=== PATIENT | male | born 1960 | race Caucasian/White ===

== ENCOUNTER 2017-10-22 17:54 | Emergency (ER) | payer OTHER ==
[~2017-10-22] VITALS: Ht 177.8 cm; Wt 70.0 kg
[2017-10-22 18:11] VITALS: BP 100/65; PULSE 83; RESP 16; TEMP 98.4; O2SAT 99
[2017-10-22] MEDS ORDERED: LORazepam 2 MG TAB PO ONE (18:15)
--- NOTE | 2017-10-22 18:19 | PD ---
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 Patient currently is on a liver transplant list at [facility] in [place]. He has history of increased ammonia for which he takes lactulose. He states since May 13, he has used meth 7 times, and now wants to go to a rehab facility for help before he "loses it". He states the last time he used was 50 hours ago, but he states due to his liver disease his high lasts for hours. He denies any significant medical issues that are acute at this time. He states he is up-to-date on his medications for his HIV and hepatitis. He states his last viral load was undetectable. He states he contacted the employee assistance program, who want to help him with his issue. He has been enrolled in that program prior to arrival. He denies suicidal or homicidal ideations at this time. He denies any pain. He has no known drug allergies. [facility] Social History Alcohol Use: No Tobacco Use: Yes Substance Use: Yes Allergies-Medications (Allergen,Severity, Reaction): Coded Allergies: No Known Allergies (Unverified , 10/22/17) Reported Meds & Prescriptions Reported Meds & Active Scripts Active Reported Tivicay (Dolutegravir Sodium) 50 Mg Tab 50 Mg PO DAILY Prezcobix (Darunavir-Cobicistat) 800-150 Mg Tab 1 Tab PO DAILY Descovy (Emtricitabine-Tenofovir Alafenamide) 200-25 mg Tab 1 Tab PO DAILY Citalopram (Citalopram Hydrobromide) 20 Mg Tab 20 Mg PO DAILY Azithromycin 600 Mg Tab 600 Mg PO 2XWEEK Calcium 600 with Vitamin D (Calcium Carbonate-Cholecalciferol) 600-400 mg-Unit Tab 1 Tab PO DAILY Review of Systems Except as stated in HPI: all other systems reviewed are Neg General / Constitutional: No: Fever Eyes: No: Visual changes HENT: No: Headaches Cardiovascular: No: Chest Pain or Discomfort Respiratory: No: Shortness of Breath Gastrointestinal: No: Abdominal Pain Genitourinary: No: Dysuria Musculoskeletal: No: Pain Skin: No Rash Neurologic: No: Weakness Psychiatric: Positive: Substance Abuse, No: Depression, Suicidal Ideations, Homicidal Ideation Endocrine: No: Polydipsia Hematologic/Lymphatic: No: Easy Bruising Physical Exam Narrative GENERAL: Patient appears anxious and embarrassed but otherwise in no acute distress. SKIN: Warm and dry. Normal color. Normal turgor. No signs of IV drug use or cellulitis. HEAD: Atraumatic. Normocephalic. EYES: Pupils equal and round. No scleral icterus. No injection or drainage. ENT: No nasal bleeding or discharge. Mucous membranes pink and moist. Pharynx is clear. Airways patent NECK: Trachea midline. Supple nontender CARDIOVASCULAR: Regular rate and rhythm. RESPIRATORY: No accessory muscle use. Clear to auscultation. Breath sounds equal bilaterally. GASTROINTESTINAL: Abdomen soft, non-tender, nondistended. Hepatic and splenic margins enlarged consistent with his chronic hepatitis. MUSCULOSKELETAL: Extremities without clubbing, cyanosis, or edema. No obvious deformities. NEUROLOGICAL: Awake and alert. No obvious cranial nerve deficits. Motor grossly within normal limits. Five out of 5 muscle strength in the arms and legs. Normal speech. PSYCHIATRIC: Appropriate mood and affect; insight and judgment normal. Data Data Last Documented VS Vital Signs Date Time Temp Pulse Resp B/P (MAP) Pulse Ox O2 Delivery O2 Flow Rate FiO2 10/22/17 18:11 98.4 83 16 100/65 (77) 99 Room Air Orders Orders Complete Blood Count With Diff (10/22/17 18:09) Comprehensive Metabolic Panel (10/22/17 18:09) Thyroid Stimulating Hormone (10/22/17 18:09) Urinalysis - C+S If Indicated (10/22/17 18:09) Psych Screen (10/22/17 18:09) Drug Screen, Random Urine (10/22/17 18:09) Alcohol (Ethanol) (10/22/17 18:09) Ammonia (10/22/17 18:09) Lorazepam (Ativan) (10/22/17 18:15) Labs Laboratory Tests Test 10/22/17 18:30 [facility] Medical Decision Making Medical Screen Exam Complete: Yes Emergency Medical Condition: Yes Medical Record Reviewed: Yes Differential Diagnosis Substance abuse. Anxiety. Depression. Request for rehab. Narrative Course Patient is medically stable at time of exam. Labs ordered including CBC, CMP, urinalysis, urine drug screen, and serum alcohol level. Serum ammonia levels ordered as well. Psych screen is ordered. Patient is given 1 mg lorazepam p.o. Patient is medically cleared for psychiatric evaluation. Condition: Stable Bryn Shea Oct 22, 2017 18:19
[2017-10-22] MEDS ORDERED: DARU1TAB2 PO (18:21)
[2017-10-22] MEDS ORDERED: CALC1TAB87 PO (18:21)
[2017-10-22] MEDS ORDERED: AZIT600T PO (18:21)
[2017-10-22] MEDS ORDERED: DOLU1TAB PO (18:21)
[2017-10-22] MEDS ORDERED: EMTR1TAB4 PO (18:21)
[2017-10-22] MEDS ORDERED: CITA20TA4 PO (18:21)
[2017-10-22 18:46] LABS: AUTOMATED NEUTROPHIL # 2.5 TH/MM3 (1.8-7.7); BASOPHIL % 0.4 % (0.0-2.0); EOSINOPHIL # 0.1 TH/MM3 (0-0.4); EOSINOPHIL % 1.6 % (0.0-4.0); HEMATOCRIT 28.2 % (39.0-51.0); HEMOGLOBIN 9.3 GM/DL (13.0-17.0); LYMPH % 10.5 % (9.0-44.0); LYMPHOCYTE # 0.3 TH/MM3 (1.0-4.8); MEAN CELL VOLUME 72.5 FL (80.0-100.0); MEAN CORPUSCULAR HEMOGLOBIN 23.8 PG (27.0-34.0); MEAN CORPUSCULAR HGB CONC 32.8 % (32.0-36.0); MEAN PLATELET VOLUME 7.9 FL (7.0-11.0); MONO % 10.3 % (0.0-8.0); MONOCYTE # 0.3 TH/MM3 (0-0.9); NEUT % 77.2 % (16.0-70.0); PLATELET COUNT 90 TH/MM3 (150-450); RED BLOOD COUNT 3.89 MIL/MM3 (4.50-5.90); RED CELL DISTRIBUTION WIDTH 17.2 % (11.6-17.2); WHITE BLOOD COUNT 3.2 TH/MM3 (4.0-11.0)
[2017-10-22 19:28] LABS: OVALOCYTES 1+ (NORMAL); TOXIC GRANULATION 2+ (NORMAL)
[2017-10-22 19:41] LABS: ALBUMIN 3.7 GM/DL (3.4-5.0); ALT (GPT) 61 U/L (12-78); AST (GOT) 87 U/L (15-37); BICARBONATE 23.4 MEQ/L (21.0-32.0); BLOOD UREA NITROGEN 15 MG/DL (7-18); CALCIUM 8.5 MG/DL (8.5-10.1); CHLORIDE 106 MEQ/L (98-107); CREATININE 0.96 MG/DL (0.60-1.30); GLOMERULAR FILTRATION RATE 81 ML/MIN (>89); GLUCOSE,RANDOM 84 MG/DL (74-106); SODIUM (NA) 139 MEQ/L (136-145)
[2017-10-22 19:51] LABS: ALKALINE PHOSPHATASE 45 U/L (45-117); TOTAL BILIRUBIN ADULT 0.9 MG/DL (0.2-1.0); TOTAL PROTEIN 7.6 GM/DL (6.4-8.2)
[2017-10-22 23:20] LABS: BILIRUBIN, URINE NEG (NEG); BLOOD, URINE NEG (NEG); GLUCOSE,URINE NEG (NEG); KETONE, URINE TRACE mg/dL (NEG); MUCUS URINE FEW /lpf (OCC); NITRITE,URINE NEG (NEG); URINE COLOR YELLOW (YELLW/STRAW); URINE LEUKOCYTE ESTERASE NEG (NEG)
[2017-10-23 05:51] VITALS: BP 106/56; PULSE 86; RESP 16; O2SAT 98
--- NOTE | 2017-10-23 09:04 | PD ---
Physical Exam Date Seen by Provider: Oct 23, 2017 Time Seen by Provider: 09:00 Narrative 57-year-old male previously medically cleared for psychiatric evaluation, with history of substance abuse, was discussed with psychiatric services, and they felt it was inappropriate for them to assess the patient psychiatrically as he is an employee here at [employer]. The patient is not homicidal or suicidal, so Isaac act is inappropriate. Patient was given information regarding multiple drug rehabilitation services, that he can go to on his own accord. Patient can also follow up with his primary care physician as well. Patient remained stable for discharge at this time. Data Data Last Documented VS Vital Signs Date Time Temp Pulse Resp B/P (MAP) Pulse Ox O2 Delivery O2 Flow Rate FiO2 10/23/17 05:51 86 16 106/56 (73) 98 Room Air 10/22/17 18:11 98.4 Orders Orders Complete Blood Count With Diff (10/22/17 18:09) Comprehensive Metabolic Panel (10/22/17 18:09) Thyroid Stimulating Hormone (10/22/17 18:09) Urinalysis - C+S If Indicated (10/22/17 18:09) Drug Screen, Random Urine (10/22/17 18:09) Alcohol (Ethanol) (10/22/17 18:09) Ammonia (10/22/17 18:09) Lorazepam (Ativan) (10/22/17 18:15) Diet Regular Basic (10/23/17 Breakfast) Labs Laboratory Tests Test 10/22/17 18:30 10/22/17 22:52 White Blood Count 3.2 TH/MM3 Red Blood Count 3.89 MIL/MM3 Hemoglobin 9.3 GM/DL Hematocrit 28.2 % Mean Corpuscular Volume 72.5 FL Mean Corpuscular Hemoglobin 23.8 PG Mean Corpuscular Hemoglobin Concent 32.8 % Red Cell Distribution Width 17.2 % Platelet Count 90 TH/MM3 Mean Platelet Volume 7.9 FL Neutrophils (%) (Auto) 77.2 % Lymphocytes (%) (Auto) 10.5 % Monocytes (%) (Auto) 10.3 % Eosinophils (%) (Auto) 1.6 % Basophils (%) (Auto) 0.4 % Neutrophils # (Auto) 2.5 TH/MM3 Lymphocytes # (Auto) 0.3 TH/MM3 Monocytes # (Auto) 0.3 TH/MM3 Eosinophils # (Auto) 0.1 TH/MM3 Basophils # (Auto) 0.0 TH/MM3 CBC Comment AUTO DIFF Differential Comment AUTO DIFF CONFIRMED Toxic Granulation 2+ Platelet Estimate LOW Platelet Morphology Comment NORMAL Ovalocytes 1+ Blood Urea Nitrogen 15 MG/DL Creatinine 0.96 MG/DL Random Glucose 84 MG/DL Total Protein 7.6 GM/DL Albumin 3.7 GM/DL Calcium Level 8.5 MG/DL Alkaline Phosphatase 45 U/L Aspartate Amino Transf (AST/SGOT) 87 U/L Alanine Aminotransferase (ALT/SGPT) 61 U/L Total Bilirubin 0.9 MG/DL Sodium Level 139 MEQ/L Potassium Level 3.7 MEQ/L Chloride Level 106 MEQ/L Carbon Dioxide Level 23.4 MEQ/L Anion Gap 10 MEQ/L Estimat Glomerular Filtration Rate 81 ML/MIN Ammonia 39 MCMOL/L Thyroid Stimulating Hormone 3rd Gen 2.270 uIU/ML Ethyl Alcohol Level LESS THAN 3 MG/DL Urine Color YELLOW Urine Turbidity CLEAR Urine pH 6.0 Urine Specific [place] 1.014 Urine Protein TRACE mg/dL Urine Glucose (UA) NEG mg/dL Urine Ketones TRACE mg/dL Urine Occult Blood NEG Urine Nitrite NEG Urine Bilirubin NEG Urine Urobilinogen 4.0 MG/DL Urine Leukocyte Esterase NEG Urine WBC 2 /hpf Urine Mucus FEW /lpf Microscopic Urinalysis Comment CULT NOT INDICATED Urine Opiates Screen NEG Urine Barbiturates Screen NEG Urine Amphetamines Screen POS Urine Benzodiazepines Screen NEG Urine Cocaine Screen NEG Urine Cannabinoids Screen NEG MDM Medical Record Reviewed: Yes Supervised Visit with MISHEL: Yes Narrative Course 57-year-old male previously medically cleared for psychiatric evaluation, with history of substance abuse, was discussed with psychiatric services, and they felt it was inappropriate for them to assess the patient psychiatrically as he is an employee here at [employer]. The patient is not homicidal or suicidal, so Isaac act is inappropriate. Patient was given information regarding multiple drug rehabilitation services, that he can go to on his own accord. Patient can also follow up with his primary care physician as well. Patient remained stable for discharge at this time. Diagnosis Primary Impression: Substance abuse Additional Impression: Liver disease, unspecified Patient Instructions: General Instructions Additional Instruction: Follow-up with rehabilitation services as discussed. Follow-up with primary care physician. Disposition: DISCHARGE HOME Condition: Stable Bryn Shea Oct 23, 2017 09:04
[2017-10-23 10:02] VITALS: BP 130/68
== END 2017-10-23 10:04 | disposition home or self-care (01) ==
LOC: NEPD 17:54
DX: B20 Human immunodeficiency virus [HIV] disease (principal); F19.10 Other psychoactive substance abuse, uncomplicated; K76.9 Liver disease, unspecified; Z72.0 Tobacco use; Z79.899 Other long term (current) drug therapy
CPT/HCPCS: 80053; 80307; 81001; 82140; 84443; 85025; 99283

== ENCOUNTER 2017-11-30 16:01 | Emergency (ER) | payer OTHER ==
[~2017-11-30] VITALS: Ht 172.7 cm; Wt 72.5 kg
[~2017-11-30 16:01] MED LIST: AZIT600T PO; CALC1TAB87 PO; CITA20TA4 PO; DARU1TAB2 PO; DOLU1TAB PO; EMTR1TAB4 PO
[2017-11-30 16:10] VITALS: BP 146/80; PULSE 73; RESP 18; TEMP 99.2; O2SAT 97
[2017-11-30] MEDS ORDERED: CALC1TAB37 PO (16:35)
[2017-11-30] MEDS ORDERED: LACT10SO PO (16:36)
[2017-11-30 17:01] LABS: AUTOMATED NEUTROPHIL # 2.5 TH/MM3 (1.8-7.7); BASOPHIL % 0.4 % (0.0-2.0); HEMATOCRIT 28.3 % (39.0-51.0); HEMOGLOBIN 9.3 GM/DL (13.0-17.0); LYMPH % 11.4 % (9.0-44.0); LYMPHOCYTE # 0.4 TH/MM3 (1.0-4.8); MEAN CELL VOLUME 72.1 FL (80.0-100.0); MEAN CORPUSCULAR HEMOGLOBIN 23.6 PG (27.0-34.0); MEAN CORPUSCULAR HGB CONC 32.8 % (32.0-36.0); MEAN PLATELET VOLUME 7.9 FL (7.0-11.0); MONO % 13.1 % (0.0-8.0); MONOCYTE # 0.4 TH/MM3 (0-0.9); NEUT % 74.1 % (16.0-70.0); PLATELET COUNT 90 TH/MM3 (150-450); RED BLOOD COUNT 3.93 MIL/MM3 (4.50-5.90); RED CELL DISTRIBUTION WIDTH 18.1 % (11.6-17.2); WHITE BLOOD COUNT 3.3 TH/MM3 (4.0-11.0)
[2017-11-30 17:10] LABS: CHLORIDE 107 MEQ/L (98-107); SODIUM (NA) 140 MEQ/L (136-145)
[2017-11-30 17:13] LABS: CALCIUM 8.6 MG/DL (8.5-10.1)
[2017-11-30 17:14] LABS: BICARBONATE 23.9 MEQ/L (21.0-32.0); BLOOD UREA NITROGEN 14 MG/DL (7-18); GLUCOSE,RANDOM 96 MG/DL (74-106)
[2017-11-30 17:17] LABS: ALT (GPT) 49 U/L (12-78); AST (GOT) 70 U/L (15-37); CREATININE 0.81 MG/DL (0.60-1.30); GLOMERULAR FILTRATION RATE 99 ML/MIN (>89)
[2017-11-30 17:19] LABS: TOTAL BILIRUBIN ADULT 1.1 MG/DL (0.2-1.0); TOTAL PROTEIN 7.7 GM/DL (6.4-8.2)
[2017-11-30 17:20] LABS: ALKALINE PHOSPHATASE 49 U/L (45-117)
--- NOTE | 2017-11-30 17:47 | PD ---
HPI . 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 He reports known esophageal varices. He states that he had blood in his stools 2 days ago and then again one day ago. His stools today were normal. He has not vomited any blood. The patient's main concern is that he is about to be arrested as a pedophile. He states that his 2 previous ex-lovers have conspired together to make it seem like he is a pedophile. He states that he is innocent of that. He states that he would rather than go to detention as a pedophile. He further admits that he does suffer from delusions and hallucinations and had reality from his delusions and hallucinations. However, he states that he is sure that he is to ex-lovers are conspiring to have him arrested with the hope being that he will be killed in detention. The patient states that the 2 lovers both have insurance policies on him. PFSH Past Medical History Autoimmune Disease: Yes (HIV) Hepatitis: Yes (B, 34 years) Hypertension: Yes (PORT HYPERTENSION, END STAGE CIRRHOSIS) Immune Disorder: Yes (HIV +) Immunizations Current: Yes Past Surgical History Genitourinary Surgery: Yes (testical torsion) Other Surgery: Yes (7 bandings of esophageal varieces, nasoseptoplasty, adenoidectomy) Social History Alcohol Use: Yes (SOCIALLY) Tobacco Use: No Substance Use: Yes (THC, CRYSTAL METH) Allergies-Medications (Allergen,Severity, Reaction): Coded Allergies: No Known Allergies (Unverified , 11/30/17) Reported Meds & Prescriptions Reported Meds & Active Scripts Active Reported Lactulose Liq (Lactulose) 10 Gm/15 Ml Soln 30 Ml PO BID Calcium 600+D (Calcium Carbonate-Cholecalciferol) 600-800 Mg-Unit Tab 1 Tab PO DAILY Tivicay (Dolutegravir Sodium) 50 Mg Tab 50 Mg PO DAILY Prezcobix (Darunavir-Cobicistat) 800-150 Mg Tab 1 Tab PO DAILY Descovy (Emtricitabine-Tenofovir Alafenamide) 200-25 mg Tab 1 Tab PO DAILY Citalopram (Citalopram Hydrobromide) 20 Mg Tab 20 Mg PO DAILY Azithromycin 600 Mg Tab 600 Mg PO 2XWEEK Review of Systems Except as stated in HPI: all other systems reviewed are Neg General / Constitutional: No: Fever, Chills Cardiovascular: No: Chest Pain or Discomfort Respiratory: No: Shortness of Breath Gastrointestinal: Positive: Hematochezia, No: Nausea, Vomiting, Abdominal Pain , Hematemesis Psychiatric: Positive: Anxiety, Depression, Suicidal Ideations, Disorder of Thought, Mood Disorder, Substance Abuse Physical Exam Narrative GENERAL: Awake and alert. Psychomotor agitation. SKIN: warm/dry. HEAD: Normocephalic. Atraumatic. EYES: Pupils equal and round. Extraocular movements are intact. ENT: Mucous membranes pink and moist. NECK: Supple. Full range of motion without pain.. CARDIOVASCULAR: Regular rate and rhythm. Heart sounds normal. RESPIRATORY: No accessory muscle use. Clear to auscultation. Breath sounds equal bilaterally. GASTROINTESTINAL: Abdomen soft. Nontender. Bowel sounds present. Nondistended. RECTAL: Brown stool in the rectal vault. MUSCULOSKELETAL: No obvious deformities. Normal muscle tone. NEUROLOGICAL: Awake and alert. No obvious cranial nerve deficits. Motor grossly within normal limits. Normal speech. PSYCHIATRIC: Awake and alert. Psychomotor agitation. Admitted substance abuse. Suicidal ideation. Data Data Last Documented VS Vital Signs Date Time Temp Pulse Resp B/P (MAP) Pulse Ox O2 Delivery O2 Flow Rate FiO2 11/30/17 16:10 99.2 73 18 146/80 (102) 97 Orders Orders Complete Blood Count With Diff (11/30/17 16:31) Comprehensive Metabolic Panel (11/30/17 16:31) Thyroid Stimulating Hormone (11/30/17 16:31) Psych Screen (11/30/17 16:31) Drug Screen, Random Urine (11/30/17 16:31) Labs Laboratory Tests Test 11/30/17 16:45 11/30/17 16:50 Urine Opiates Screen NEG Urine Barbiturates Screen NEG Urine Amphetamines Screen POS Urine Benzodiazepines Screen NEG Urine Cocaine Screen NEG Urine Cannabinoids Screen NEG White Blood Count 3.3 TH/MM3 Red Blood Count 3.93 MIL/MM3 Hemoglobin 9.3 GM/DL Hematocrit 28.3 % Mean Corpuscular Volume 72.1 FL Mean Corpuscular Hemoglobin 23.6 PG Mean Corpuscular Hemoglobin Concent 32.8 % Red Cell Distribution Width 18.1 % Platelet Count 90 TH/MM3 Mean Platelet Volume 7.9 FL Neutrophils (%) (Auto) 74.1 % Lymphocytes (%) (Auto) 11.4 % Monocytes (%) (Auto) 13.1 % Eosinophils (%) (Auto) 1.0 % Basophils (%) (Auto) 0.4 % Neutrophils # (Auto) 2.5 TH/MM3 Lymphocytes # (Auto) 0.4 TH/MM3 Monocytes # (Auto) 0.4 TH/MM3 Eosinophils # (Auto) 0.0 TH/MM3 Basophils # (Auto) 0.0 TH/MM3 CBC Comment AUTO DIFF Differential Comment AUTO DIFF CONFIRMED Platelet Estimate NORMAL Platelet Morphology Comment NORMAL Red Cell Morphology Comment NORMAL Blood Urea Nitrogen 14 MG/DL Creatinine 0.81 MG/DL Random Glucose 96 MG/DL Total Protein 7.7 GM/DL Albumin 4.0 GM/DL Calcium Level 8.6 MG/DL Alkaline Phosphatase 49 U/L Aspartate Amino Transf (AST/SGOT) 70 U/L Alanine Aminotransferase (ALT/SGPT) 49 U/L Total Bilirubin 1.1 MG/DL Sodium Level 140 MEQ/L Potassium Level 3.5 MEQ/L Chloride Level 107 MEQ/L Carbon Dioxide Level 23.9 MEQ/L Anion Gap 9 MEQ/L Estimat Glomerular Filtration Rate 99 ML/MIN Thyroid Stimulating Hormone 3rd Gen 2.630 uIU/ML MDM Medical Decision Making Medical Screen Exam Complete: Yes Emergency Medical Condition: Yes Medical Record Reviewed: Yes (The patient was seen at [facility] [place] [facility] in September because of substance abuse. Psychiatry was consulted. 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 Narrative Course This patient presents complaining with suicidal ideation. He states that he is suicidal because he will imminently be arrested as a pedophile. He fears that he will in detention. He states that his 2 ex-lovers have insurance policies on him and stand to gain from his . He believes that they are setting him up as a pedophile. I have called our psychiatry service for advice. They have recommended that I medically clear the patient and then refer him to [facility]. CBC & BMP Diagram 11/30/17 16:50 Total Protein 7.7, Albumin 4.0, Calcium Level 8.6, Alkaline Phosphatase 49, Aspartate Amino Transf (AST/SGOT) 70 H, Alanine Aminotransferase (ALT/SGPT) 49, Total Bilirubin 1.1 H These labs are stable for this patient. His rectal exam is Hemoccult negative. Vital Signs Date Time Temp Pulse Resp B/P (MAP) Pulse Ox O2 Delivery O2 Flow Rate FiO2 11/30/17 16:10 99.2 73 18 146/80 (102) 97 This patient is medically clear for psychiatric evaluation. I have called [facility]. They have asked that I fax the patient's information to them. Diagnosis Primary Impression: Suicidal ideation Additional Impressions: HIV (human immunodeficiency virus infection) Cirrhosis Qualified Codes: K74.60 - Unspecified cirrhosis of liver Polysubstance abuse Condition: Stable Gudelia Carrizales MD Nov 30, 2017 17:47
[2017-11-30 18:23] VITALS: BP 132/76; PULSE 90; RESP 20; O2SAT 98
[2017-11-30 19:48] VITALS: BP 109/58; PULSE 93; RESP 17; O2SAT 97
--- NOTE | 2017-11-30 20:02 | PD ---
Physical Exam Narrative Received sign out from previous team that we are currently waiting to hear back from [facility] psych unit to see if they will take him. Pt has been medically clear by previous team, please see her note for further details. 57yo M with PMH of HIV on medications VL undetectable, CD4 count 100, HPV here with suicidal ideations. Pt told me that he is 60% certain and has a plan. Said he has auditory hallucinations for a while. Pt states that his two ex is plotting against him and wants him to go to snf for pedophile charges. Unknown if this is actually true. Pt does have pressure speech and seems manic. Denies any homicidal ideations. 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 That is why even though we have psych, pt will be transfer to [facility] as per patient request. Labs reviewed, WBC 3.3. H/H 9.3/28.3 which is baseline as compare to 10/22/17. Thrombocytopenic at 90,000 which is also baseline. Mildly elevated bilirubin at 1.1. TSH normal. Pt is on daily lactulose. Ammonia level has been requested by [facility] which has been drawn. Ammonia level mildly elevated at 57. Pt given lactulose. Said he did not take his lactulose for 2 days. Do not think that an ammonia level of 57 is the reason for his paranoia. Will place routine lactulose doses and pt is still medically clear to be evaluated by psych. Discussed with Samson, the psychiatrist nurse from [facility] who spoke with the psychiatrist Dr. Landry and he told me that they are not accepting the patient because of his comorbidities. I feel that pt is suicidal and currently a threat to himself so Marlin Acted him. Discussed with patient and he is ok with going to [facility] now. Asked registration to make his name confidential. Discussed with [facility] pod nurse Eleonora and she is aware pt is being transferred to [facility] for psych evaluation. Ordered lactulose daily. We do not have many of the HIV combination medications that pt take and pt has his medications with him so feel that if pt is still waiting for psych tomorrow, he should take his own medications. Data Data Last Documented VS Vital Signs Date Time Temp Pulse Resp B/P (MAP) Pulse Ox O2 Delivery O2 Flow Rate FiO2 11/30/17 23:57 98.2 89 18 133/76 (95) 98 Room Air Orders Orders Complete Blood Count With Diff (11/30/17 16:31) Comprehensive Metabolic Panel (11/30/17 16:31) Thyroid Stimulating Hormone (11/30/17 16:31) Psych Screen (11/30/17 16:31) Drug Screen, Random Urine (11/30/17 16:31) Ammonia (11/30/17 19:54) Lactulose Liq (Lactulose Liq) (11/30/17 21:00) Lactulose Liq (Lactulose Liq) (12/01/17 09:00) Lorazepam Inj (Ativan Inj) (12/01/17 00:15) Labs Laboratory Tests Test 11/30/17 16:45 11/30/17 16:50 11/30/17 20:05 Urine Opiates Screen NEG Urine Barbiturates Screen NEG Urine Amphetamines Screen POS Urine Benzodiazepines Screen NEG Urine Cocaine Screen NEG Urine Cannabinoids Screen NEG White Blood Count 3.3 TH/MM3 Red Blood Count 3.93 MIL/MM3 Hemoglobin 9.3 GM/DL Hematocrit 28.3 % Mean Corpuscular Volume 72.1 FL Mean Corpuscular Hemoglobin 23.6 PG Mean Corpuscular Hemoglobin Concent 32.8 % Red Cell Distribution Width 18.1 % Platelet Count 90 TH/MM3 Mean Platelet Volume 7.9 FL Neutrophils (%) (Auto) 74.1 % Lymphocytes (%) (Auto) 11.4 % Monocytes (%) (Auto) 13.1 % Eosinophils (%) (Auto) 1.0 % Basophils (%) (Auto) 0.4 % Neutrophils # (Auto) 2.5 TH/MM3 Lymphocytes # (Auto) 0.4 TH/MM3 Monocytes # (Auto) 0.4 TH/MM3 Eosinophils # (Auto) 0.0 TH/MM3 Basophils # (Auto) 0.0 TH/MM3 CBC Comment AUTO DIFF Differential Comment AUTO DIFF CONFIRMED Platelet Estimate NORMAL Platelet Morphology Comment NORMAL Red Cell Morphology Comment NORMAL Blood Urea Nitrogen 14 MG/DL Creatinine 0.81 MG/DL Random Glucose 96 MG/DL Total Protein 7.7 GM/DL Albumin 4.0 GM/DL Calcium Level 8.6 MG/DL Alkaline Phosphatase 49 U/L Aspartate Amino Transf (AST/SGOT) 70 U/L Alanine Aminotransferase (ALT/SGPT) 49 U/L Total Bilirubin 1.1 MG/DL Sodium Level 140 MEQ/L Potassium Level 3.5 MEQ/L Chloride Level 107 MEQ/L Carbon Dioxide Level 23.9 MEQ/L Anion Gap 9 MEQ/L Estimat Glomerular Filtration Rate 99 ML/MIN Thyroid Stimulating Hormone 3rd Gen 2.630 uIU/ML Ammonia 57 MCMOL/L MDM Supervised Visit with MISHEL: No Diagnosis Primary Impression: Suicidal ideation Additional Impressions: HIV (human immunodeficiency virus infection) Cirrhosis Qualified Codes: K74.60 - Unspecified cirrhosis of liver Polysubstance abuse Condition: Yudith Reyna DO Nov 30, 2017 20:02
[2017-11-30] MEDS ORDERED: LACTULOSE SYRUP 20 GM/30 ML CUP PO ONE (21:00)
[2017-11-30 21:55] VITALS: BP 113/70; PULSE 87; RESP 18; O2SAT 98
[2017-11-30 23:01] VITALS: BP 129/80
[2017-11-30 23:57] VITALS: BP 133/76; PULSE 89; RESP 18; TEMP 98.2; O2SAT 98
[2017-12-01] MEDS ORDERED: LORazepam 2 MG/ML VIAL IM ONE (00:15)
[2017-12-01 06:31] VITALS: BP 119/61; PULSE 77; RESP 16; TEMP 98.2; O2SAT 97
[2017-12-01] MEDS ORDERED: LACTULOSE SYRUP 20 GM/30 ML CUP PO SCH (09:00)
--- NOTE | 2017-12-01 10:06 | PD ---
History of Present Illness Chief Complaint: Suicide Ideation/Attempt Time Seen by Provider: 09:45 Travel History International Travel<30 Days: No Contact w/Intl Traveler<30days: No Known affected area: No Legal Status Legal Status: Involuntary Isaac Act Signed By: Brittanie Isaac Act Comment: CERTIFICATE OF PROFESSIONAL INITIATING INVOLUNTARY EXAMINATION11/30/17@2226 History of Present Illness: History of Present Illness HPI This is a 57 year old, single male with multiple medical problems including HIV, on medications VL undetectable, CD4 count 100, HPV,substance use disorder mostly methamphetamine, previously treated with Citalopram, who presents to ED for evaluation of rectal bleeding as well as suicidal ideation. ED note is reviewed and included in this report. "The patient's main concern is that he is about to be arrested as a pedophile. He states that his 2 previous ex-lovers have conspired together to make it seem like he is a pedophile. He states that he is innocent of that. He states that he would rather than go to [facility] as a pedophile. He further admits that he does suffer from delusions and hallucinations and had reality from his delusions and hallucinations. However, he states that he is sure that he is to ex-lovers are conspiring to have him arrested with the hope being that he will be killed in [facility]. The patient states that the 2 lovers both have insurance policies on him." EMR reviewed. Current toxicology is positive for amphetamines. Patient presented to ED on September 2017 requesting substance abuse treatment. Patient is seen. He is asleep but awakens easily. He is calm and cooperative. His speech is clear of low tone but of normal rate. Patient does not appear to be responding to internal stimuli. No evidence of luis or hypomania. He states he needs" ongoing care. I need rehab for substance abuse. " He reports a six-year history of crystal meth use. He last used on Tuesday and Tuesday of this week. Previous to that he had been clean since May 2017. However he has had episodes of relapse in which she has used for 1 or 2 days. The patient presently is not endorsing any suicidal ideation, intent or plan. States I'm not a suicidal person but I did state that he may be facing criminal charges and that he had mentioned "if I was going to [facility] I would shoot myself". He is requesting treatment at this time and is willing to be transferred to a facility that could treat both his substance use as well as his mental health needs. The remainder of the psychiatric review of system is negative. PFSH Past Medical History Autoimmune Disease: Yes (HIV) Hepatitis: Yes (B, 34 years) Hypertension: Yes (PORT HYPERTENSION, END STAGE CIRRHOSIS) Immune Disorder: Yes (HIV +) Immunizations Current: Yes Past Surgical History Genitourinary Surgery: Yes (testical torsion) Other Surgery: Yes (7 bandings of esophageal varieces, nasoseptoplasty, adenoidectomy) Psychiatric History Psychiatric History Hx Psychiatric Treatment: No previous psychiatric hospitalization. Has been treated with Celexa in the past. He currently is not taking this medication. And this was prescribed to him at the [facility]. No history of suicide attempt. History of Inpatient Treatment: No Guns or firearms in home: No Social History Single, male. Works as a respiratory therapist. Born in [facility]. Hx Alcohol Use: Yes (SOCIALLY) Hx Tobacco Use: No Hx Substance Use: Yes (THC, CRYSTAL METH) Substance Use Type: Amphetamines-Stimulants Hx of Substance Use Treatment: No Family Psychiatric History Negative Allergies-Medications (Allergen,Severity, Reaction): Coded Allergies: No Known Allergies (Unverified , 11/30/17) Reported Meds & Prescriptions Reported Meds & Active Scripts Active Reported Lactulose Liq (Lactulose) 10 Gm/15 Ml Soln 30 Ml PO BID Calcium 600+D (Calcium Carbonate-Cholecalciferol) 600-800 Mg-Unit Tab 1 Tab PO DAILY Tivicay (Dolutegravir Sodium) 50 Mg Tab 50 Mg PO DAILY Prezcobix (Darunavir-Cobicistat) 800-150 Mg Tab 1 Tab PO DAILY Descovy (Emtricitabine-Tenofovir Alafenamide) 200-25 mg Tab 1 Tab PO DAILY Citalopram (Citalopram Hydrobromide) 20 Mg Tab 20 Mg PO DAILY Azithromycin 600 Mg Tab 600 Mg PO 2XWEEK Review of Systems Constitutional: COMPLAINS OF: Fatigue Psychiatric: COMPLAINS OF: Depression, Suicidal Ideation Mental Status Examination Appearance: Appropriate (In [facility]) Consciousness: Alert Orientation: x4 Motor Activity: Normal gait Speech: Unremarkable Language: Adequate Fund of Knowledge: Adequate Attention and Concentration: Adequate Memory: Unremarkable Mood: Appropriate Affect: Appropriate Thought Process & Associations: Intact, Logical, Goal directed Thought Content: Appropriate Hallucination Type: None Delusion Type: None Suicidal Ideation: Yes (If I am sent to [facility] I said I would shoot myself". ) Suicidal Plan: No Suicidal Intention: No Homicidal Ideation: No Homicidal Plan: No Homicidal Intention: No Insight: Adequate Judgment: Adequate MDM Medical Decision Making Medical Record Reviewed: Yes Assessment/Plan This is a 57 year old, single male with multiple medical problems including HIV, on medications VL undetectable, CD4 count 100, HPV,substance use disorder mostly methamphetamine, previously treated with Citalopram, who presents to ED for evaluation of rectal bleeding as well as suicidal ideation. ED note is reviewed and included in this report. "The patient's main concern is that he is about to be arrested as a pedophile. He states that his 2 previous ex-lovers have conspired together to make it seem like he is a pedophile. He states that he is innocent of that. He states that he would rather than go to [facility] as a pedophile. He further admits that he does suffer from delusions and hallucinations and had reality from his delusions and hallucinations. However, he states that he is sure that he is to ex-lovers are conspiring to have him arrested with the hope being that he will be killed in [facility]. The patient states that the 2 lovers both have insurance policies on him." Patient at this time is [place] for safety and he is requesting to be admitted to a facility that provides both psychiatric as well as treatment for his substance abuse problems. Case discussed with Mr. Nino Pérez to assist with disposition. Referral packet to [facility] and was accepted for treatment. He will be transported there. Orders Orders Complete Blood Count With Diff (11/30/17 16:31) Comprehensive Metabolic Panel (11/30/17 16:31) Thyroid Stimulating Hormone (11/30/17 16:31) Psych Screen (11/30/17 16:31) Drug Screen, Random Urine (11/30/17 16:31) Ammonia (11/30/17 19:54) Lactulose Liq (Lactulose Liq) (11/30/17 21:00) Lactulose Liq (Lactulose Liq) (12/01/17 09:00) Lorazepam Inj (Ativan Inj) (12/01/17 00:15) Diet Regular Basic (12/01/17 Breakfast) Diet Regular Basic (12/01/17 Lunch) Results Vital Signs Date Time Temp Pulse Resp B/P (MAP) Pulse Ox O2 Delivery O2 Flow Rate FiO2 12/01/17 06:31 98.2 77 16 119/61 (80) 97 11/30/17 23:57 98.2 89 18 133/76 (95) 98 Room Air 11/30/17 23:01 84 16 129/80 (96) 98 11/30/17 21:55 87 18 113/70 (84) 98 Room Air 11/30/17 19:48 93 17 109/58 (75) 97 11/30/17 18:23 90 20 132/76 (94) 98 Room Air 11/30/17 16:10 99.2 73 18 146/80 (102) 97 Laboratory Tests Test 11/30/17 16:45 11/30/17 16:50 11/30/17 20:05 Urine Opiates Screen NEG Urine Barbiturates Screen NEG Urine Amphetamines Screen POS Urine Benzodiazepines Screen NEG Urine Cocaine Screen NEG Urine Cannabinoids Screen NEG White Blood Count 3.3 Red Blood Count 3.93 Hemoglobin 9.3 Hematocrit 28.3 Mean Corpuscular Volume 72.1 Mean Corpuscular Hemoglobin 23.6 Mean Corpuscular Hemoglobin Concent 32.8 Red Cell Distribution Width 18.1 Platelet Count 90 Mean Platelet Volume 7.9 Neutrophils (%) (Auto) 74.1 Lymphocytes (%) (Auto) 11.4 Monocytes (%) (Auto) 13.1 Eosinophils (%) (Auto) 1.0 Basophils (%) (Auto) 0.4 Neutrophils # (Auto) 2.5 Lymphocytes # (Auto) 0.4 Monocytes # (Auto) 0.4 Eosinophils # (Auto) 0.0 Basophils # (Auto) 0.0 CBC Comment AUTO DIFF Differential Comment AUTO DIFF CONFIRMED Platelet Estimate NORMAL Platelet Morphology Comment NORMAL Red Cell Morphology Comment NORMAL Blood Urea Nitrogen 14 Creatinine 0.81 Random Glucose 96 Total Protein 7.7 Albumin 4.0 Calcium Level 8.6 Alkaline Phosphatase 49 Aspartate Amino Transf (AST/SGOT) 70 Alanine Aminotransferase (ALT/SGPT) 49 Total Bilirubin 1.1 Sodium Level 140 Potassium Level 3.5 Chloride Level 107 Carbon Dioxide Level 23.9 Anion Gap 9 Estimat Glomerular Filtration Rate 99 Thyroid Stimulating Hormone 3rd Gen 2.630 Ammonia 57 Diagnosis Primary Impression: Substance induced mood disorder Additional Impression: Amphetamine abuse Psychiatrically Cleared: Yes Disposition: 70 TRANSFER TO OTHER FACILITY Condition: Stable Problem Qualifiers Judith Gunter Dec 01, 2017 10:06
[2017-12-01] MEDS ORDERED: PATIENT OWN MEDICATION PO SCH (11:00)
== END 2017-12-01 12:03 | disposition short-term general hospital (02) ==
LOC: EEVIPCON 16:01 → PHED 16:01 → NEPJ 12-01 12:03
DX: B20 Human immunodeficiency virus [HIV] disease (principal); F15.14 Other stimulant abuse with stimulant-induced mood disorder; K74.60 Unspecified cirrhosis of liver; K62.5 Hemorrhage of anus and rectum; Z79.899 Other long term (current) drug therapy
CPT/HCPCS: 80053; 80307; 82140; 84443; 85025; 96372; 99285; J2060